=== PATIENT | male | born 1970 | race Caucasian/White ===

== ENCOUNTER → 2016-12-28 | Outpatient (CLI) | payer OTHER ==
[2016-12-28 09:24] LABS: MEAN CORPUSCULAR HEMOGLOBIN 32.6 pg (27.0-33.0); MEAN CORPUSCULAR HGB CONC 32.9 g/dl (32.0-36.5); RED CELL DISTRIBUTION WIDTH 12.9 % (11.5-14.5); WHITE BLOOD COUNT 6.6 K/mm3 (4.0-10.0)
[2016-12-28 09:32] LABS: ALBUMIN 3.5 GM/DL (3.2-5.2); ALBUMIN/GLOBULIN RATIO 1.13 (1.00-1.93); ALKALINE PHOSPHATASE 219 U/L (45-117); ALT/SGPT 143 U/L (12-78); ANION GAP 8 MEQ/L (8-16); AST/SGOT 107 U/L (15-37); BILIRUBIN,TOTAL 0.5 MG/DL (0.2-1.0); BLOOD UREA NITROGEN 5 MG/DL (7-18); CARBON DIOXIDE LEVEL 27 MEQ/L (21-32); CHLORIDE LEVEL 105 MEQ/L (98-107); CREATININE FOR GFR 0.64 MG/DL (0.70-1.30); GLOMERULAR FILTRATION RATE > 60.0 (>60); GLUCOSE, FASTING 125 MG/DL (70-105); POTASSIUM SERUM 4.1 MEQ/L (3.5-5.1); SODIUM LEVEL 140 MEQ/L (136-145); TOTAL PROTEIN 6.6 GM/DL (6.4-8.2)
== END ==
LOC: M LAB 08:23
PROVIDERS: ATTEND Nurse Practitioner Adult Health
DX: E72.20 Disorder of urea cycle metabolism, unspecified (principal); I10 Essential (primary) hypertension; K76.0 Fatty (change of) liver, not elsewhere classified

== ENCOUNTER → 2017-08-07 | Outpatient (CLI) | payer OTHER | LOC: M OUTALCOH 07:47 | PROVIDERS: ATTEND Psychiatry & Neurology Psychiatry | DX: F10.20 Alcohol dependence, uncomplicated (principal); F12.10 Cannabis abuse, uncomplicated ==

== ENCOUNTER 2017-09-17 08:00 | Outpatient (RCR) | payer OTHER | END 2017-09-19 | LOC: M OUTALCOH 08:00 | PROVIDERS: ATTEND Psychiatry & Neurology Psychiatry | DX: F10.20 Alcohol dependence, uncomplicated (principal); F12.10 Cannabis abuse, uncomplicated ==

== ENCOUNTER 2018-02-12 17:27 | Emergency (ER) | payer OTHER ==
[2018-02-12] MEDS: LORazepam 2 MG/ML VIAL (J2060) IM (17:45)
[2018-02-12] MEDS: NS 1,000 ML IV ×2 (17:54→20:01)
[2018-02-12 18:04] LABS: HEMATOCRIT 39.3 % (42.0-52.0); MEAN CORPUSCULAR HEMOGLOBIN 27.9 pg (27.0-33.0); MEAN CORPUSCULAR HGB CONC 33.1 g/dl (32.0-36.5); MEAN CORPUSCULAR VOLUME 84.3 fl (80.0-96.0); PLATELET COUNT, AUTOMATED 225 10^3/uL (150-450); RED BLOOD COUNT 4.66 10^6/uL (4.30-6.10); RED CELL DISTRIBUTION WIDTH 16.6 % (11.5-14.5); WHITE BLOOD COUNT 15.3 10^3/uL (4.0-10.0)
[2018-02-12] MEDS: HALOPERIDOL 5 MG/ML VIAL (J1630) IM (18:18)
[2018-02-12] MEDS: diphenhydrAMINE INJ 50MG/ML VIAL (J1200) IM (18:18)
[2018-02-12 18:40] LABS: ALKALINE PHOSPHATASE 122 U/L (45-117); ALT/SGPT 39 U/L (12-78); ANION GAP 10 MEQ/L (8-16); AST/SGOT 51 U/L (7-37); BILIRUBIN,DIRECT 0.2 MG/DL (0.0-0.2); BILIRUBIN,TOTAL 0.5 MG/DL (0.2-1.0); BLOOD UREA NITROGEN 4 MG/DL (7-18); CALCIUM LEVEL 8.2 MG/DL (8.5-10.1); CARBON DIOXIDE LEVEL 25 MEQ/L (21-32); CHLORIDE LEVEL 115 MEQ/L (98-107); CREATININE FOR GFR 0.74 MG/DL (0.70-1.30); ETHYL ALCOHOL (ETHANOL) 0.441 % (0.000-0.010); GLOMERULAR FILTRATION RATE > 60.0 (>60); GLUCOSE, FASTING 119 MG/DL (70-100); POTASSIUM SERUM 3.5 MEQ/L (3.5-5.1); SALICYLATE LEVEL < 1.7 MG/DL (5.0-30.0); SODIUM LEVEL 150 MEQ/L (136-145)
[2018-02-12 18:43] LABS: ACETAMINOPHEN LEVEL < 2.0 UG/ML (10.0-30.0)
[2018-02-12] MEDS: MULTIVITAMIN -ADULT INJECTION 10 ML, THIAMINE INJection 100 MG, FOLIC ACID 1 MG in NS 1... IV (20:17)
[2018-02-13 08:18] LABS: ETHYL ALCOHOL (ETHANOL) 0.214 % (0.000-0.010)
== END 2018-02-13 09:11 | disposition home or self-care (01) ==
LOC: M ED 02-13 09:11
DX: F10.10 Alcohol abuse, uncomplicated (principal); Z79.899 Other long term (current) drug therapy; Z91.018 Allergy to other foods
CPT/HCPCS: J1200

== ENCOUNTER 2018-02-14 15:15 | Inpatient (IN) | payer OTHER ==
[2018-02-14 14:06] LABS: BASO # 0.1 10^3/uL (0.0-0.2); BASO % 0.9 % (0.0-1.0); EOS # 0.1 10^3/uL (0.0-0.50); EOS % 1.9 % (0.0-3.0); HEMATOCRIT 38.5 % (42.0-52.0); HEMOGLOBIN 12.8 g/dl (13.5-17.5); IMMATURE GRANULOCYTE % 0.9 % (0-3.0); LYMPH # 2.2 10^3/uL (1.5-4.5); LYMPH % 30.6 % (24.0-44.0); MEAN CORPUSCULAR HEMOGLOBIN 28.2 pg (27.0-33.0); MEAN CORPUSCULAR HGB CONC 33.2 g/dl (32.0-36.5); MEAN CORPUSCULAR VOLUME 84.8 fl (80.0-96.0); MONO # 0.4 10^3/uL (0.0-0.8); NEUTROPHILS # 4.2 10^3/uL (1.8-7.7); NEUTROPHILS % 59.7 % (36.0-66.0); PLATELET COUNT, AUTOMATED 164 10^3/uL (150-450); RED BLOOD COUNT 4.54 10^6/uL (4.30-6.10); RED CELL DISTRIBUTION WIDTH 16.6 % (11.5-14.5)
[2018-02-14 14:26] LABS: AMMONIA 42 uMOL/L (<32)
[2018-02-14] MEDS: NS 1,000 ML IV ×2 (14:31→15:18)
[2018-02-14 14:32] LABS: ABG BASE EXCESS -7.3 (-2.0-2.0); ABG HCO3 16.7 MEQ/L (22.0-26.0); ABG O2 SATURATION 95.2 % (95.0-99.0); ABG PARTIAL PRESSURE CO2 29.9 mmHg (35.0-45.0); ABG PARTIAL PRESSURE O2 89.7 mmHg (75.0-100.0); ABG STANDARD HCO3 18.6 MEQ/L (22.0-26.0); ABG TOTAL CO2 17.7 MEQ/L (22.0-29.0); ABG pH (ARTERIAL) 7.366 UNITS (7.350-7.450)
[2018-02-14 14:36] LABS: ALBUMIN 3.7 GM/DL (3.2-5.2); ALBUMIN/GLOBULIN RATIO 1.06 (1.00-1.93); ALKALINE PHOSPHATASE 137 U/L (45-117); ALT/SGPT 40 U/L (12-78); ANION GAP 12 MEQ/L (8-16); AST/SGOT 73 U/L (7-37); BILIRUBIN,DIRECT 0.2 MG/DL (0.0-0.2); BILIRUBIN,TOTAL 0.5 MG/DL (0.2-1.0); BLOOD UREA NITROGEN 4 MG/DL (7-18); CALCIUM LEVEL 7.7 MG/DL (8.5-10.1); CARBON DIOXIDE LEVEL 20 MEQ/L (21-32); CHLORIDE LEVEL 119 MEQ/L (98-107); CREATININE FOR GFR 0.68 MG/DL (0.70-1.30); GLOMERULAR FILTRATION RATE > 60.0 (>60); GLUCOSE, FASTING 114 MG/DL (70-100); POTASSIUM SERUM 3.9 MEQ/L (3.5-5.1); SALICYLATE LEVEL < 1.7 MG/DL (5.0-30.0); SODIUM LEVEL 151 MEQ/L (136-145); TOTAL PROTEIN 7.2 GM/DL (6.4-8.2); TROPONIN I < 0.02 NG/ML (< 0.10)
[2018-02-14 14:46] LABS: CK-MB VALUE MASS 2.2 NG/ML (<3.6); CPK CREATINE PHOSPHOKINASE 1056 U/L (39-308); THYROID STIMULATING HORMONE 0.664 uIU/ML (0.358-3.740)
[2018-02-14 14:47] LABS: ACETAMINOPHEN LEVEL < 2.0 UG/ML (10.0-30.0)
[2018-02-14 14:50] LABS: AMPHETAMINES LEVEL URINE NEGATIVE (NEGATIVE); BARBITURATES URINE NEGATIVE (NEGATIVE); BENZODIAZEPINES URINE NEGATIVE (NEGATIVE); CANNABINOIDS URINE NEGATIVE (NEGATIVE); COCAINE METABOLITE URINE NEGATIVE (NEGATIVE); METHADONE URINE NEGATIVE (NEGATIVE); OPIATES URINE NEGATIVE (NEGATIVE); PHENCYCLIDINE URINE NEGATIVE (NEGATIVE)
[2018-02-14 15:03] LABS: ETHYL ALCOHOL (ETHANOL) 0.523 % (0.000-0.010)
[2018-02-14 15:05] LABS: LACTIC ACID SEPSIS PROTOCOL 3.7 MMOL/L (0.4-2.0)
[2018-02-14 15:20] LABS: KETONE, URINE AUTO RFX TRACE mg/dL (NEGATIVE); LEUKOCYTE ESTERASE UR AUTO RFX NEGATIVE (NEGATIVE); MUCUS, URINE RFX SMALL (NEGATIVE); NITRITE, URINE AUTO RFX NEGATIVE (NEGATIVE); RBC, URINE AUTO RFX 0 /HPF (0-3); SPECIFIC GRAVITY UR AUTO RFX 1.013 (1.002-1.035); SQUAM EPITHELIAL CELL UR AURFX 0 /HPF (0-6); WBC, URINE AUTO RFX 0 /HPF (0-3)
[2018-02-14 15:53] LABS: ETHYL ALCOHOL (ETHANOL) 0.496 % (0.000-0.010)
[2018-02-15] MEDS: OXAZEPAM 15 MG CAP PO ×2 (01:44→08:49)
[2018-02-15] MEDS ORDERED: MULTIVITAMIN -ADULT INJECTION 10 ML, THIAMINE INJection 100 MG, FOLIC ACID 1 MG in NS 1... IV (09:45)
[2018-02-15 10:04] LABS: ANION GAP 10 MEQ/L (8-16); BLOOD UREA NITROGEN 4 MG/DL (7-18); CALCIUM LEVEL 8.2 MG/DL (8.5-10.1); CARBON DIOXIDE LEVEL 26 MEQ/L (21-32); CHLORIDE LEVEL 105 MEQ/L (98-107); CREATININE FOR GFR 0.65 MG/DL (0.70-1.30); ETHYL ALCOHOL (ETHANOL) 0.142 % (0.000-0.010); GLOMERULAR FILTRATION RATE > 60.0 (>60); GLUCOSE, FASTING 86 MG/DL (70-100); POTASSIUM SERUM 4.2 MEQ/L (3.5-5.1); SODIUM LEVEL 141 MEQ/L (136-145)
[2018-02-15 10:18] LABS: LACTIC ACID SEPSIS PROTOCOL 3.2 MMOL/L (0.4-2.0)
[2018-02-15] MEDS: MULTIVITAMIN -ADULT INJECTION 10 ML, THIAMINE INJection 100 MG, FOLIC ACID 1 MG in NS 1... IV (10:19)
[2018-02-15] MEDS: OMEPRAZOLE 20 MG CAP PO ×2 (11:22→20:54)
[2018-02-15] MEDS: METOPROLOL TARTRATE 100 MG TAB PO ×2 (11:22→20:55)
[2018-02-15] MEDS: SERTRALINE 100 MG TAB PO (11:22)
[2018-02-15] MEDS: OXAZEPAM 10 MG CAP PO ×5 (11:22→23:50)
[2018-02-15] MEDS: ONDANSETRON 4MG/2ML VIAL (J2405) IV ×3 (11:36→23:51)
[2018-02-15] MEDS: LORazepam 2 MG/ML VIAL (J2060) IV ×3 (11:36→22:10)
[2018-02-15] MEDS: hydrOXYzine 25 MG TAB PO (12:48)
[2018-02-15] MEDS: hydrALAZINE INJ 20 MG/ML VIAL IV (12:49)
[2018-02-15] MEDS: GABAPENTIN 400 MG CAP PO ×3 (12:51→20:55)
[2018-02-15] MEDS: HEPARIN SOD (PORCINE) 5000 UNITS/ML VIAL SC ×2 (14:00→21:14)
[2018-02-15] MEDS: ACETAMINOPHEN TAB 650MG DOSE (2X325MG) PO (15:12)
[2018-02-15 16:47] LABS: PARTIAL THROMBOPLASTIN TIME 31.3 SECONDS (26.8-37.9)
[2018-02-15] MEDS: MAALOX 30 ML SUSP *UDC PO (18:28)
[2018-02-15] MEDS: ADVAIR HFA 115/21MCG INHALER INH (19:53)
[2018-02-16 04:22] LABS: HEMATOCRIT 39.5 % (42.0-52.0); HEMOGLOBIN 13.3 g/dl (13.5-17.5); MEAN CORPUSCULAR HGB CONC 33.7 g/dl (32.0-36.5); MEAN CORPUSCULAR VOLUME 83.2 fl (80.0-96.0); PLATELET COUNT, AUTOMATED 145 10^3/uL (150-450); RED BLOOD COUNT 4.75 10^6/uL (4.30-6.10); RED CELL DISTRIBUTION WIDTH 16.3 % (11.5-14.5); WHITE BLOOD COUNT 4.9 10^3/uL (4.0-10.0)
[2018-02-16 04:38] LABS: AMMONIA 23 uMOL/L (<32)
[2018-02-16 04:40] LABS: ALBUMIN 3.6 GM/DL (3.2-5.2); ALKALINE PHOSPHATASE 181 U/L (45-117); ALT/SGPT 40 U/L (12-78); ANION GAP 6 MEQ/L (8-16); AST/SGOT 48 U/L (7-37); BILIRUBIN,TOTAL 1.2 MG/DL (0.2-1.0); BLOOD UREA NITROGEN 5 MG/DL (7-18); CALCIUM LEVEL 8.9 MG/DL (8.5-10.1); CARBON DIOXIDE LEVEL 27 MEQ/L (21-32); CHLORIDE LEVEL 105 MEQ/L (98-107); GLOMERULAR FILTRATION RATE > 60.0 (>60); GLUCOSE, FASTING 101 MG/DL (70-100); POTASSIUM SERUM 3.2 MEQ/L (3.5-5.1); SODIUM LEVEL 138 MEQ/L (136-145); TOTAL PROTEIN 7.6 GM/DL (6.4-8.2)
[2018-02-16] MEDS: OXAZEPAM 10 MG CAP PO ×5 (05:32→17:29)
[2018-02-16] MEDS: HEPARIN SOD (PORCINE) 5000 UNITS/ML VIAL SC ×3 (05:32→21:41)
[2018-02-16] MEDS: MAALOX 30 ML SUSP *UDC PO (05:35)
[2018-02-16] MEDS: POTASSIUM CHLORIDE 10 MEQ SR TABLET PO ×2 (05:55→07:30)
[2018-02-16] MEDS: ADVAIR HFA 115/21MCG INHALER INH ×2 (07:48→19:48)
[2018-02-16] MEDS: LORATADINE 10 MG TAB PO (08:29)
[2018-02-16] MEDS: THIAMINE 100 MG TAB PO (08:29)
[2018-02-16] MEDS: FOLIC ACID 1 MG TAB PO (08:29)
[2018-02-16] MEDS: SERTRALINE 100 MG TAB PO (08:29)
[2018-02-16] MEDS: GABAPENTIN 400 MG CAP PO ×4 (08:29→21:41)
[2018-02-16] MEDS: MULTIVITAMINS/MINERALS THERAP 1 TAB PO (08:29)
[2018-02-16] MEDS: NALTREXONE 50 MG TAB PO (08:30)
[2018-02-16] MEDS: OMEPRAZOLE 20 MG CAP PO ×2 (08:30→21:42)
[2018-02-16] MEDS: METOPROLOL TARTRATE 100 MG TAB PO ×2 (08:30→21:43)
[2018-02-16] MEDS: LORazepam 2 MG/ML VIAL (J2060) IV ×3 (08:40→21:41)
[2018-02-16] MEDS: hydrOXYzine 25 MG TAB PO (10:11)
[2018-02-16] MEDS ORDERED: IPRATROPIUM 0.5MG/ALBUTEROL 2.5MG INH SOL UD 3ML (DUONEB)(J7620) NEB (15:00)
[2018-02-16] MEDS: cloNIDine 0.1 MG TAB PO ×2 (15:29→21:42)
[2018-02-16 15:48] LABS: INR 1.07; PROTHROMBIN TIME 14.1 SECONDS (12.4-14.5)
[2018-02-16 15:49] LABS: PARTIAL THROMBOPLASTIN TIME 35.4 SECONDS (26.8-37.9)
[2018-02-17] MEDS: OXAZEPAM 10 MG CAP PO ×5 (00:22→23:31)
[2018-02-17] MEDS: HEPARIN SOD (PORCINE) 5000 UNITS/ML VIAL SC ×2 (06:09→14:00)
[2018-02-17 06:19] LABS: HEMATOCRIT 37.7 % (42.0-52.0); HEMOGLOBIN 12.5 g/dl (13.5-17.5); MEAN CORPUSCULAR HEMOGLOBIN 27.9 pg (27.0-33.0); MEAN CORPUSCULAR HGB CONC 33.2 g/dl (32.0-36.5); MEAN CORPUSCULAR VOLUME 84.2 fl (80.0-96.0); PLATELET COUNT, AUTOMATED 122 10^3/uL (150-450); RED BLOOD COUNT 4.48 10^6/uL (4.30-6.10); WHITE BLOOD COUNT 5.3 10^3/uL (4.0-10.0)
[2018-02-17 06:52] LABS: ALBUMIN 3.3 GM/DL (3.2-5.2); ALBUMIN/GLOBULIN RATIO 0.83 (1.00-1.93); ALKALINE PHOSPHATASE 188 U/L (45-117); ALT/SGPT 45 U/L (12-78); ANION GAP 6 MEQ/L (8-16); AST/SGOT 56 U/L (7-37); BILIRUBIN,TOTAL 0.6 MG/DL (0.2-1.0); BLOOD UREA NITROGEN 5 MG/DL (7-18); CALCIUM LEVEL 9.1 MG/DL (8.5-10.1); CARBON DIOXIDE LEVEL 30 MEQ/L (21-32); CHLORIDE LEVEL 104 MEQ/L (98-107); CREATININE FOR GFR 0.75 MG/DL (0.70-1.30); GLOMERULAR FILTRATION RATE > 60.0 (>60); GLUCOSE, FASTING 103 MG/DL (70-100); POTASSIUM SERUM 3.7 MEQ/L (3.5-5.1); SODIUM LEVEL 140 MEQ/L (136-145); TOTAL PROTEIN 7.3 GM/DL (6.4-8.2)
[2018-02-17] MEDS: ADVAIR HFA 115/21MCG INHALER INH ×2 (07:17→20:16)
[2018-02-17] MEDS: hydrOXYzine 25 MG TAB PO (10:04)
[2018-02-17] MEDS: cloNIDine 0.1 MG TAB PO ×2 (10:04→20:11)
[2018-02-17] MEDS: SERTRALINE 100 MG TAB PO (10:04)
[2018-02-17] MEDS: MULTIVITAMINS/MINERALS THERAP 1 TAB PO (10:04)
[2018-02-17] MEDS: FOLIC ACID 1 MG TAB PO (10:05)
[2018-02-17] MEDS: THIAMINE 100 MG TAB PO (10:05)
[2018-02-17] MEDS: OMEPRAZOLE 20 MG CAP PO ×2 (10:05→20:09)
[2018-02-17] MEDS: LORATADINE 10 MG TAB PO (10:05)
[2018-02-17] MEDS: GABAPENTIN 400 MG CAP PO ×4 (10:05→20:09)
[2018-02-17] MEDS: METOPROLOL TARTRATE 100 MG TAB PO ×2 (10:06→20:11)
[2018-02-17] MEDS: NALTREXONE 50 MG TAB PO (10:06)
[2018-02-17] MEDS: MAALOX 30 ML SUSP *UDC PO (20:08)
[2018-02-17] MEDS: LORazepam 2 MG/ML VIAL (J2060) IV ×2 (20:09→23:31)
[2018-02-18 05:57] LABS: HEMATOCRIT 36.7 % (42.0-52.0); HEMOGLOBIN 12.2 g/dl (13.5-17.5); MEAN CORPUSCULAR HEMOGLOBIN 28.3 pg (27.0-33.0); MEAN CORPUSCULAR HGB CONC 33.2 g/dl (32.0-36.5); MEAN CORPUSCULAR VOLUME 85.2 fl (80.0-96.0); PLATELET COUNT, AUTOMATED 124 10^3/uL (150-450); RED BLOOD COUNT 4.31 10^6/uL (4.30-6.10); RED CELL DISTRIBUTION WIDTH 17.4 % (11.5-14.5)
[2018-02-18] MEDS: OXAZEPAM 10 MG CAP PO (05:57)
[2018-02-18] MEDS: LORazepam 2 MG/ML VIAL (J2060) IV ×2 (06:20→08:52)
[2018-02-18 06:26] LABS: ALBUMIN 3.4 GM/DL (3.2-5.2); ALBUMIN/GLOBULIN RATIO 0.87 (1.00-1.93); ALKALINE PHOSPHATASE 164 U/L (45-117); ALT/SGPT 53 U/L (12-78); ANION GAP 9 MEQ/L (8-16); AST/SGOT 50 U/L (7-37); BILIRUBIN,TOTAL 0.6 MG/DL (0.2-1.0); BLOOD UREA NITROGEN 6 MG/DL (7-18); CALCIUM LEVEL 8.9 MG/DL (8.5-10.1); CARBON DIOXIDE LEVEL 27 MEQ/L (21-32); CHLORIDE LEVEL 104 MEQ/L (98-107); GLOMERULAR FILTRATION RATE > 60.0 (>60); GLUCOSE, FASTING 132 MG/DL (70-100); POTASSIUM SERUM 3.7 MEQ/L (3.5-5.1); SODIUM LEVEL 140 MEQ/L (136-145); TOTAL PROTEIN 7.3 GM/DL (6.4-8.2)
[2018-02-18] MEDS: ADVAIR HFA 115/21MCG INHALER INH (07:15)
[2018-02-18] MEDS: GABAPENTIN 400 MG CAP PO (08:52)
[2018-02-18] MEDS: SERTRALINE 100 MG TAB PO (08:53)
[2018-02-18] MEDS: METOPROLOL TARTRATE 100 MG TAB PO (08:53)
[2018-02-18] MEDS: FOLIC ACID 1 MG TAB PO (08:53)
[2018-02-18] MEDS: NALTREXONE 50 MG TAB PO (08:53)
[2018-02-18] MEDS: OMEPRAZOLE 20 MG CAP PO (08:53)
[2018-02-18] MEDS: LORATADINE 10 MG TAB PO (08:53)
[2018-02-18] MEDS: cloNIDine 0.1 MG TAB PO (08:53)
[2018-02-18] MEDS: MULTIVITAMINS/MINERALS THERAP 1 TAB PO (08:53)
[2018-02-18] MEDS: THIAMINE 100 MG TAB PO (08:53)
== END 2018-02-18 11:30 | disposition home or self-care (01) | DRG 775 ==
LOC: M MS5PR 02-16 09:38 → M ED INP 02-15 09:43 → M ICU 02-15 11:07 → M ED 15:15
PROVIDERS: Hospitalist
DX: F10.239 Alcohol dependence with withdrawal, unspecified (principal); E87.0 Hyperosmolality and hypernatremia; E72.29 Other disorders of urea cycle metabolism; D69.6 Thrombocytopenia, unspecified; I10 Essential (primary) hypertension; D64.9 Anemia, unspecified; E87.6 Hypokalemia; J45.909 Unspecified asthma, uncomplicated; K21.9 Gastro-esophageal reflux disease without esophagitis; E78.5 Hyperlipidemia, unspecified; F41.9 Anxiety disorder, unspecified; Z91.19 Patient's noncompliance with other medical treatment and regimen; Z87.891 Personal history of nicotine dependence; Z79.899 Other long term (current) drug therapy; Z91.018 Allergy to other foods